=== PATIENT | female | born 1980 | race Caucasian/White ===

== ENCOUNTER 2016-10-21 10:10 | Emergency (ER) | payer BC, OTHER ==
[2016-10-21 10:37] VITALS: TEMP 99.3
[2016-10-21 10:46] LABS: COLOR YELLOW; LEUKOCYTE ESTERASE,URINE NEGATIVE (NEGATIVE); NITRITE,URINE NEGATIVE (NEGATIVE); PH,URINE 5.5 (5.0-7.5)
[2016-10-21 11:48] LABS: % IMMATURE GRANULYOCYTES 0.1 % (0.0-1.1); ABSOLUTE IMMATURE GRANULOCYTES 0.01 10^3/uL (0.00-0.10); ADD DIFF? NO; ADD MORPH? NO; ADD SCAN? NO; ATYPICAL LYMPHOCYTE FLAG 20 (0-99); FRAGMENT RBC FLAG 20 (0-99); HEMATOCRIT 37.5 % (38.0-47.0); HEMOGLOBIN 13.1 g/dL (12.6-16.3); LEFT SHIFT FLG 0 (0-99); LIPEMIA HEMOLYSIS FLAG 90 (0-99); MEAN CELL HEMOGLOBIN 27.5 pg (27.9-34.1); MEAN CELL HEMOGLOBIN CONCENTR. 34.9 g/dL (32.4-36.7); MEAN CELL VOLUME 78.6 fL (81.5-99.8); MEAN PLATELET VOLUME 11.9 fL (8.7-11.7); PLATELET CLUMPS FLAG 0 (0-99); PLATELET COUNT 271 10^3/uL (150-400); RED BLOOD CELL COUNT 4.77 10^6/uL (4.18-5.33)
[2016-10-21 12:11] LABS: ANION GAP 13 mEq/L (8-16); CALCIUM 8.9 mg/dL (8.5-10.4); CARBON DIOXIDE 21 mEq/l (22-31); CHLORIDE 105 mEq/L (97-110); CREATININE 0.6 mg/dL (0.6-1.0); GLOMERULAR FILTRATION RATE > 60; GLUCOSE 82 mg/dL (70-100); SODIUM 139 mEq/L (134-144)
--- NOTE | 2016-10-21 12:25 | UCPHY ---
H & P Patient Type: Established Chief Complaint Nursing Narrative: lower abd pain since yesterday at 1pm with bilateral flank pain radiating, constant pain, urinating in small amounts, slight nausea, denies fevers or diarrhea, Time Seen by Provider: 10/21/16 11:15 HPI/ROS: This patient complains of low back pain and abdominal pain. She reports that she has been having intermittent low back pain over the past week or so and saw a chiropractor once without significant improvement. Today she developed associated low abdominal pain primarily left lower quadrant she describes this is achy in nature. Yesterday when it started she reports peak pain of 7/10 in the belly 5/10 in the back. Today it is 5 5/10 intensity back and belly worse with movement. No other exacerbating factors except the back pains with lifting her 3-year-old child. She has not tried any medications for the pain. ROS: No fevers or chills. No other constitutional symptoms. HEENT: No recent URI symptoms. Pulmonary: No cough shortness of breath or chest pain. Cardiovascular: No lightheadedness. No lower extremity swelling. No pallor to the lower extremity. No pulsatile abdominal pain. GI: No vomiting. She reports chronic mild constipation typically going once every other day with over -the-counter laxative. : No hematuria. No dysuria. Last menstrual period was normal timing. 10 point ROS is otherwise negative Source: Patient Exam Limitations: No limitations - Personal History LMP (Females 10-55): 8-14 Days Ago - Medical/Surgical History PMH: Constipation Otherwise healthy Hx Asthma: No Hx Chronic Respiratory Disease: No Hx Diabetes: No Hx Cardiac Disease: No Hx Renal Disease: No Hx Cirrhosis: No Hx Alcoholism: No Hx HIV/AIDS: No Hx Splenectomy or Spleen Trauma: No Other PMH: denies - Family History Significant Family History: No pertinent family hx - Social History Smoking Status: Never smoked Alcohol Use: Rarely Drug Use: None - Physical Exam Exam: General Appearance: Alert, no distress. Eyes: Pupils equal and round no pallor or injection. ENT, Mouth: Mucous membranes moist. Respiratory: There are no retractions, lungs are clear to auscultation. Cardiovascular: Regular rate and rhythm. Gastrointestinal: Normoactive, soft, mild left lower quadrant tenderness with no guarding or rebound. No pulsatile masses. Back: No midline tenderness. She has left paraspinous tenderness-mild with some muscle spasm. Otherwise normal. Neurological: Alert with no focal deficits. She maintains normal light touch sensory exam bilateral lower extremities, 5/5 strength in great toe dorsiflexion plantar flexion bilaterally. Skin: Warm and dry, no rashes. Musculoskeletal: Neck is supple nontender. Extremities are symmetrical, full range of motion. Psychiatric: Mood and affect normal DIFFERENTIAL DIAGNOSIS: After history and physical exam differential diagnosis was considered for ectopic , UTI, low back strain, constipation, diverticulitis Constitutional: Initial Vital Signs Temperature (C) 37.4 C 10/21/16 10:25 Heart Rate 84 10/21/16 10:25 Respiratory Rate 18 10/21/16 10:25 Blood Pressure 141/87 H 10/21/16 10:25 O2 Sat (%) 97 10/21/16 10:25 O2 Delivery Mode Room Air Allergies/Adverse Reactions: Latex, Natural Rubber Allergy (Verified 10/21/16 10:33) Home Medications: Medication Instructions Recorded CALCIUM 600 + VIT D TABLET 1 tab PO DAILY 09/16/13 IRON,CARBONYL [IRON] 1 tab PO DAILY 09/16/13 Docusate Sodium [Colace 100 MG (*)] 100 mg PO BID #20 cap 10/21/16 Methocarbamol [Robaxin 750 mg (*)] 750 - 1,500 mg PO QID PRN #30 tab 10/21/16 Medical Decision Making ED Course/Re-evaluation: Labs on this patient-CBC, electrolytes, urinalysis, test normal and negative. Suspect this patient has combination of low back strain and constipation. I counseled regarding this. - Data Points Laboratory Results: Laboratory Results 10/21/16 11:44 10/21/16 11:44 10/21/16 10/21/16 10/21/16 11:44 11:44 11:44 WBC 8.02 10^3/uL 10^3/uL (3.80-9.50) RBC 4.77 10^6/uL 10^6/uL (4.18-5.33) Hgb 13.1 g/dL g/dL (12.6-16.3) Hct 37.5 % L % (38.0-47.0) MCV 78.6 fL L fL (81.5-99.8) MCH 27.5 pg L pg (27.9-34.1) MCHC 34.9 g/dL g/dL (32.4-36.7) RDW 15.0 % % (11.5-15.2) Plt Count 271 10^3/uL 10^3/uL (150-400) MPV 11.9 fL H fL (8.7-11.7) Neut % (Auto) 58.7 % % (39.3-74.2) Lymph % (Auto) 29.1 % % (15.0-45.0) Norton % (Auto) 9.6 % % (4.5-13.0) Eos % (Auto) 2.0 % % (0.6-7.6) Baso % (Auto) 0.5 % % (0.3-1.7) Nucleat RBC Rel Count 0.0 % % (0.0-0.2) Absolute Neuts (auto) 4.71 10^3/uL 10^3/uL (1.70-6.50) Absolute Lymphs (auto) 2.33 10^3/uL 10^3/uL (1.00-3.00) Absolute Monos (auto) 0.77 10^3/uL 10^3/uL (0.30-0.80) Absolute Eos (auto) 0.16 10^3/uL 10^3/uL (0.03-0.40) Absolute Basos (auto) 0.04 10^3/uL 10^3/uL (0.02-0.10) Absolute Nucleated RBC 0.00 10^3/uL 10^3/uL (0-0.01) Immature Gran % 0.1 % % (0.0-1.1) Immature Gran # 0.01 10^3/uL 10^3/uL (0.00-0.10) Sodium 139 mEq/L mEq/L (134-144) Potassium 4.0 mEq/L mEq/L (3.5-5.2) Chloride 105 mEq/L mEq/L (97-110) Carbon Dioxide 21 mEq/l L mEq/l (22-31) Anion Gap 13 mEq/L mEq/L (8-16) BUN 8 mg/dL mg/dL (7-23) Creatinine 0.6 mg/dL mg/dL (0.6-1.0) Estimated GFR > 60 Glucose 82 mg/dL mg/dL (70-100) Calcium 8.9 mg/dL mg/dL (8.5-10.4) Beta HCG, Qual NEGATIVE Urine Color Urine Appearance Urine pH Ur Specific St[place]ett Urine Protein Urine Ketones Urine Blood Urine Nitrate Urine Bilirubin Urine Urobilinogen Ur Leukocyte Esterase Ur Culture Indicated? Urine Glucose 10/21/16 10:40 WBC RBC Hgb Hct MCV MCH MCHC RDW Plt Count MPV Neut % (Auto) Lymph % (Auto) Norton % (Auto) Eos % (Auto) Baso % (Auto) Nucleat RBC Rel Count Absolute Neuts (auto) Absolute Lymphs (auto) Absolute Monos (auto) Absolute Eos (auto) Absolute Basos (auto) Absolute Nucleated RBC Immature Gran % Immature Gran # Sodium Potassium Chloride Carbon Dioxide Anion Gap BUN Creatinine Estimated GFR Glucose Calcium Beta HCG, Qual Urine Color YELLOW Urine Appearance HAZY Urine pH 5.5 (5.0-7.5) Ur Specific [place] 1.015 (1.002-1.030) Urine Protein NEGATIVE (NEGATIVE) Urine Ketones NEGATIVE (NEGATIVE) Urine Blood NEGATIVE (NEGATIVE) Urine Nitrate NEGATIVE (NEGATIVE) Urine Bilirubin NEGATIVE (NEGATIVE) Urine Urobilinogen 0.2 EU EU (0.2-1.0) Ur Leukocyte Esterase NEGATIVE (NEGATIVE) Ur Culture Indicated? NOT INDICATED (NI) Urine Glucose NEGATIVE (NEGATIVE) Departure - Departure Disposition: Home, Routine, Self-Care Clinical Impression: Lower abdominal pain Low back pain Qualifiers: Chronicity: acute Back pain laterality: right Sciatica presence: without sciatica Qualified Code(s): M54.5 - Low back pain Condition: Good Instructions: Low Back Strain (ED), Constipation (ED) Additional Instructions: DX: 1. Constipation 2. Low back strain Plan: Ibuprofen 400-600 mg per 6 hours regularly for the next week then as needed. Methocarbamol muscle relaxants as needed. Tylenol as needed for pain. No driving alcohol or work on methocarbamol Starts daily stretches prior to taking muscle relaxants and Vicodin in the morning. 3-5 minutes each of: "Butterfly stretch," "Sphinx stretch", "pigeon stretch", and hamstring stretch. Avoid lifting more than 5-10 pounds until symptoms improve. Call your primary care physician for a followup appointment in 3-7 days. Drink plenty fluids Colace stool softener Go to the emergency department for worsening of your symptoms despite the treatment plan. Referrals: Vee Dao MD [Primary Care Provider] - As per Instructions - PQRS PQRS Measurement: NA
[2016-10-21 12:57] VITALS: BP 137/84; PULSE 68; RESP 16; O2SAT 94
== END 2016-10-21 12:54 | disposition home or self-care (01) ==
LOC: CED 10:10
DX: K59.00 Constipation, unspecified (principal); M54.5 Low back pain
CPT/HCPCS: 80048-PO; 81003-PO; 84703-PO; 85025-PO; G0463-PO